=== PATIENT | female | born 1985 | race Caucasian/White ===

== ENCOUNTER 2019-01-05 19:45 | Emergency (ER) | payer SELFPAY ==
[~2019-01-05] VITALS: Ht 172.7 cm; Wt 77.1 kg
[2019-01-05 20:04] VITALS: BP_SYST 147
--- NOTE | 2019-01-05 20:10 | NUR ---
Patient triaged and placed in waiting room. VSS and patient appears in no acute distress at this time. Accompanied by self , awaiting available bed, and MD notified of need for MSE.
--- NOTE | 2019-01-06 00:46 | NUR ---
Patient to ER bed 06 to gown for evaluation. Side rails up. Report given to DARLEEN Srinivasan.
--- NOTE | 2019-01-06 01:00 | NUR ---
Pt C/O headache x 1 week. Pt states headache began Wednesday. Pt has taken over the counter pain medication with no relief. Pt states pain is better while laying down. Denies any fever, chills, N/V, blurred vision or any other symptoms at this time. Will continue to monitor.
--- NOTE | 2019-01-06 01:50 | NUR ---
ER Dr. Esparza at bedside examining patient.
[2019-01-06] MEDS ORDERED: MORPHINE 2 MG/ML INJ. SYRINGE IM ONE (02:00)
--- NOTE | 2019-01-06 02:19 | NUR ---
Pt ambulatory to CT accompanied by potato grader.
--- NOTE | 2019-01-06 02:25 | NUR ---
Pt returned from CT in stable condition.
--- NOTE | 2019-01-06 03:40 | NUR ---
Pt is resting in bed, no acute distress noted at this time. Will continue to monitor
[2019-01-06 04:31] VITALS: BP_SYST 147
--- NOTE | 2019-01-06 04:31 | NUR ---
Patient given written and verbal discharge instructions and verbalizes understanding. ER MD discussed with patient the results and treatment provided. Patient in stable condition. ID arm band removed. Rx of [place] given. Patient educated on pain management and to follow up with PMD. Pain Scale 0. Opportunity for questions provided and answered. Medication side effect fact sheet provided.
== END 2019-01-06 04:31 | disposition home or self-care (01) ==
LOC: SED 19:45
DX: R51 Headache (principal)
CPT/HCPCS: 70450; 81002; 96372; 99284; J2270